=== PATIENT | female | born 1965 | race African-American/Black ===

== ENCOUNTER 2021-03-03 09:33 | Inpatient (IN) | payer OTHER, MEDICAID ==
[~2021-03-03] VITALS: Ht 157.5 cm; Wt 83.2 kg
[2021-03-03] MEDS ORDERED: ACETAMINOPHEN 325MG TABLET PO STA (10:03)
[2021-03-03 10:47] LABS: BASOPHILS % 0.6 % (0.0-2.0); EOSINOPHILS % 0.9 % (0.0-5.0); HEMATOCRIT. 41.5 % (36.0-48.0); HEMOGLOBIN. 14.1 g/dL (12.0-16.0); MEAN CORPUSCULAR HEMOGLOBIN 28.7 pg (28.0-32.0); MEAN CORPUSCULAR VOLUME 84.3 fL (81.0-99.0); MONOCYTES % 8.8 % (2.0-8.0); NEUTROPHILS % 63.7 % (40.0-76.0); PLATELET 402 x1000/uL (130-400); RED BLOOD CELL COUNT 4.92 mill/uL (4.2-5.4); RED CELL DISTRIBUTION WIDTH 13.7 % (11.6-14.6)
[2021-03-03 10:48] LABS: CLARITY URINE CLOUDY (CLEAR); COLOR URINE YELLOW (YELLOW); KETONES URINE NEGATIVE (NEGATIVE); LEUKOCYTE ESTERASE URINE TRACE (NEGATIVE); NITRITE URINE NEGATIVE (NEGATIVE); OCCULT BLOOD URINE NEGATIVE (NEGATIVE); PROTEIN URINE NEGATIVE (NEGATIVE); SPECIFIC GRAVITY URINE 1.016 (1.005-1.030); UROBILINOGEN URINE 0.2 E.U./dL (0.2-1.0)
[2021-03-03 10:54] LABS: CHLORIDE 101 mEq/L (98-107)
[2021-03-03 10:56] LABS: INR 1.1; PROTHROMBIN TIME 11.6 sec (9.6-11.0)
[2021-03-03] MEDS ORDERED: KETOROLAC 60MG/2ML VIAL IM ONE (12:00)
[2021-03-03] MEDS ORDERED: MORPHINE SULFATE 4 MG/ML CPJ (NOT FOR IM USE) IV ONE (14:00)
[2021-03-03 16:00] VITALS: BP 165/62
[2021-03-03] MEDS ORDERED: BENA20TA10 MT (17:04)
[2021-03-03] MEDS ORDERED: LOSA100T32 MT (17:04)
[2021-03-03] MEDS ORDERED: HYDR50TA MT (17:04)
[2021-03-03] MEDS ORDERED: DILT240C92 MT (17:04)
[2021-03-03] MEDS ORDERED: LORAZEPAM 0.5MG TABLET PO PRN (17:30)
[2021-03-03] MEDS ORDERED: HYDROCODONE/ACETAMINOPHEN 5/325MG TABLET PO PRN (17:30)
[2021-03-03] MEDS ORDERED: CLONIDINE 0.1MG TABLET PO PRN (17:30)
[2021-03-03] MEDS ORDERED: ONDANSETRON HCL 4MG/2ML INJ IV PRN (17:30)
[2021-03-03] MEDS ORDERED: IPRATROPIUM/ALBUTEROL 0.5-3(2.5)MG/3ML NEB HHN PRN (17:30)
[2021-03-03] MEDS ORDERED: DOCUSATE SODIUM 100MG CAPSULE PO PRN (17:30)
[2021-03-03] MEDS ORDERED: ACETAMINOPHEN 325MG TABLET PO PRN ×2 (17:30)
[2021-03-03] MEDS ORDERED: MORPHINE SULFATE 2 MG/ML CPJ (NOT FOR IM USE) IV PRN (17:30)
[2021-03-03] MEDS ORDERED: *PATIENT'S OWN MEDICATION STORAGE XX SCH (18:00)
[2021-03-03] MEDS: HYDROCHLOROTHIAZIDE 25MG TABLET PO SCH (18:27)
[2021-03-03] MEDS: LOSARTAN POTASSIUM 100 MG TABLET PO SCH (18:27)
[2021-03-03] MEDS: DILTIAZEM HCL 60MG TABLET PO SCH ×2 (18:27→23:52)
[2021-03-03 18:38] VITALS: BP 165/62
[2021-03-03 20:00] VITALS: BP 189/67
[2021-03-04] VITALS: BP 131/59
[2021-03-04 04:00] VITALS: BP 148/67
[2021-03-04] MEDS: DILTIAZEM HCL 60MG TABLET PO SCH ×2 (05:19→12:00)
[2021-03-04 05:36] LABS: CHLORIDE 102 mEq/L (98-107)
[2021-03-04 05:38] LABS: BASOPHILS % 0.8 % (0.0-2.0); EOSINOPHILS % 1.6 % (0.0-5.0); HEMATOCRIT. 39.3 % (36.0-48.0); HEMOGLOBIN. 13.2 g/dL (12.0-16.0); LYMPHOCYTES % 32.5 % (20.0-50.0); MEAN CORPUSCULAR HEMOGLOBIN 28.3 pg (28.0-32.0); MEAN CORPUSCULAR VOLUME 84.1 fL (81.0-99.0); MEAN PLATELET VOLUME 9.6 fl (7.4-10.4); MONOCYTES % 11.6 % (2.0-8.0); NEUTROPHILS % 53.5 % (40.0-76.0); PLATELET 376 x1000/uL (130-400); RED BLOOD CELL COUNT 4.68 mill/uL (4.2-5.4); RED CELL DISTRIBUTION WIDTH 13.6 % (11.6-14.6)
[2021-03-04 08:00] VITALS: BP 143/54
[2021-03-04 08:24] LABS: *AMPHETAMINES SCREEN URINE NEGATIVE (NEGATIVE); *BARBITURATES SCREEN URINE NEGATIVE (NEGATIVE); *BENZODIAZEPINES SCREEN URINE NEGATIVE (NEGATIVE); *COCAINE SCREEN URINE NEGATIVE (NEGATIVE); CANNABINOID URINE SCREEN PRESUMTIVE POSITIVE (NEGATIVE); METHADONE URINE SCREEN NEGATIVE (NEGATIVE); OPIATES URINE SCREEN NEGATIVE (NEGATIVE); PHENCYCLIDINE URINE SCREEN NEGATIVE (NEGATIVE)
[2021-03-04] MEDS: LOSARTAN POTASSIUM 100 MG TABLET PO SCH (09:52)
[2021-03-04 12:00] VITALS: BP 149/54
[2021-03-04] MEDS: HYDROCHLOROTHIAZIDE 25MG TABLET PO SCH (12:23)
[2021-03-04 13:16] VITALS: BP 149/54
[2021-03-04] MEDS ORDERED: LOSA100T32 MT (13:43)
[2021-03-04] MEDS ORDERED: DILT240C92 MT (13:43)
[2021-03-04] MEDS ORDERED: HYDR-4001 MT (13:43)
[2021-03-04] MEDS ORDERED: HYDR50TA MT (13:43)
== END 2021-03-04 15:00 | disposition home or self-care (01) | DRG 445 ==
LOC: ER 09:52 → ENRESERV 14:59 → 5WST 15:54
PROVIDERS: ADMIT Internal Medicine; ATTEND Internal Medicine
DX: K80.10 Calculus of gallbladder with chronic cholecystitis without obstruction (principal); K86.2 Cyst of pancreas; I10 Essential (primary) hypertension; K76.0 Fatty (change of) liver, not elsewhere classified; F12.90 Cannabis use, unspecified, uncomplicated; Z82.49 Family history of ischemic heart disease and other diseases of the circulatory system; K76.89 Other specified diseases of liver; R82.71 Bacteriuria; Z71.51 Drug abuse counseling and surveillance of drug abuser
CPT/HCPCS: 36415; 74176; 76705; 80048; 80053; 80305; 81003; 85025; 99285; J1885; J2270

== ENCOUNTER 2022-06-02 15:36 | Inpatient (IN) | payer MEDICARE, MEDICAID ==
[~2022-06-02] VITALS: Ht 157.5 cm; Wt 93.0 kg
[~2022-06-02 15:36] MED LIST: DILT240C92 MT; HYDR-4001 MT; HYDR50TA MT; LOSA100T32 MT
[2022-06-02] MEDS ORDERED: ONDANSETRON HCL 4MG/2ML INJ IV STA (16:16)
[2022-06-02] MEDS ORDERED: KETOROLAC 30MG/ML VIAL IV STA (16:16)
[2022-06-02] MEDS ORDERED: SODIUM CHLORIDE 0.9% 1,000 ML IV ONE (16:30)
[2022-06-02 18:09] LABS: BASOPHILS % 0.9 % (0.0-2.0); CHLORIDE 108 mEq/L (98-107); EOSINOPHILS % 0.7 % (0.0-5.0); HEMOGLOBIN. 12.2 g/dL (12.0-16.0); LYMPHOCYTES % 23.9 % (20.0-50.0); MEAN CORPUSCULAR HEMOGLOBIN 26.8 pg (28.0-32.0); MEAN CORPUSCULAR VOLUME 81.5 fL (81.0-99.0); MEAN PLATELET VOLUME 9.7 fl (7.4-10.4); NEUTROPHILS % 66.5 % (40.0-76.0); PLATELET 427 x1000/uL (130-400); RED BLOOD CELL COUNT 4.54 mill/uL (4.2-5.4); RED CELL DISTRIBUTION WIDTH 14.7 % (11.6-14.6)
[2022-06-02 18:12] LABS: D-DIMER 0.27 mg/L FEU (<0.50); INR 1.1; PARTIAL THROMBOPLASTIN TIME 30.5 sec (23.4-31.0); PROTHROMBIN TIME 11.7 sec (9.6-11.0)
[2022-06-02] MEDS ORDERED: ASPIRIN 325MG EC TABLET PO ONE (18:45)
[2022-06-03] VITALS (7 sets, daily range): BP systolic 113–180; BP diastolic 54–68
[2022-06-03] MEDS ORDERED: ACETAMINOPHEN 325MG TABLET PO PRN (01:45)
[2022-06-03] MEDS ORDERED: NITROGLYCERIN 0.4MG TABLET SL SL PRN (01:45)
[2022-06-03] MEDS ORDERED: HYDROCODONE/ACETAMINOPHEN 5/325MG TABLET PO PRN (01:45)
[2022-06-03] MEDS ORDERED: ONDANSETRON HCL 4MG/2ML INJ IV PRN (01:45)
[2022-06-03] MEDS ORDERED: NALOXONE HCL 0.4MG/ML VIAL IV PRN (02:00)
[2022-06-03 06:59] LABS: BASOPHILS % 0.8 % (0.0-2.0); EOSINOPHILS % 1.5 % (0.0-5.0); HEMATOCRIT. 35.1 % (36.0-48.0); HEMOGLOBIN. 11.3 g/dL (12.0-16.0); LYMPHOCYTES % 29.9 % (20.0-50.0); MEAN CORPUSCULAR HEMOGLOBIN 26.6 pg (28.0-32.0); MEAN CORPUSCULAR VOLUME 82.4 fL (81.0-99.0); MONOCYTES % 9.2 % (2.0-8.0); NEUTROPHILS % 58.6 % (40.0-76.0); PLATELET 351 x1000/uL (130-400); RED BLOOD CELL COUNT 4.25 mill/uL (4.2-5.4); RED CELL DISTRIBUTION WIDTH 14.2 % (11.6-14.6)
[2022-06-03 08:17] LABS: CHLORIDE 110 mEq/L (98-107)
[2022-06-03 08:28] LABS: HDL CHOLESTEROL 39 mg/dL (40-59); LDL CHOLESTEROL 137 mg/dL (5-100)
[2022-06-03] MEDS: METOPROLOL SUCCINATE 50MG ER TABLET PO SCH ×2 (08:41→15:21)
[2022-06-03] MEDS ORDERED: ASPIRIN 81MG TABLET PO SCH (09:00)
[2022-06-03] MEDS ORDERED: LOSARTAN POTASSIUM 100 MG TABLET PO SCH (11:45)
[2022-06-03] MEDS ORDERED: LOSA100T32 MT (12:56)
[2022-06-03 14:19] LABS: CLARITY URINE CLEAR (CLEAR); COLOR URINE YELLOW (YELLOW); KETONES URINE TRACE (NEGATIVE); LEUKOCYTE ESTERASE URINE NEGATIVE (NEGATIVE); NITRITE URINE NEGATIVE (NEGATIVE); OCCULT BLOOD URINE NEGATIVE (NEGATIVE); PH URINE 5.5 (4.5-8.0); PROTEIN URINE TRACE (NEGATIVE); SPECIFIC GRAVITY URINE 1.033 (1.005-1.030)
== END 2022-06-03 17:46 | disposition home or self-care (01) | DRG 392 ==
LOC: ER 15:36 → MICUSO 18:46 → EDBEDREQ 18:56 → EDBEDREQTM 18:56 → 6WST 06-03 00:52
PROVIDERS: ADMIT Internal Medicine; ATTEND Internal Medicine
DX: K21.9 Gastro-esophageal reflux disease without esophagitis (principal); I10 Essential (primary) hypertension; D72.829 Elevated white blood cell count, unspecified; E66.9 Obesity, unspecified; R77.8 Other specified abnormalities of plasma proteins; E87.8 Other disorders of electrolyte and fluid balance, not elsewhere classified; Z90.49 Acquired absence of other specified parts of digestive tract; Z82.49 Family history of ischemic heart disease and other diseases of the circulatory system; Z68.37 Body mass index [BMI] 37.0-37.9, adult; Z71.3 Dietary counseling and surveillance
CPT/HCPCS: 36415; 71045; 74176; 80048; 80053; 80061; 81003; 83880; 84484; 85025; 85379; 93005; 93970; 99285; J1885; J2405; J7030

== ENCOUNTER 2022-08-04 07:14 | Emergency (ER) | payer BC, MEDICAID ==
[~2022-08-04] VITALS: Ht 157.5 cm; Wt 91.0 kg
[2022-08-04] MEDS ORDERED: KETOROLAC 60MG/2ML VIAL IM ONE (11:30)
[2022-08-04] MEDS ORDERED: ACETAMINOPHEN 325MG TABLET PO ONE (11:30)
[2022-08-04] MEDS ORDERED: TAM75 MT (14:30)
[2022-08-04] MEDS ORDERED: NAPR-681 MT (14:30)
[2022-08-04] MEDS ORDERED: TOPUD MT (14:30)
[2022-08-04] MEDS ORDERED: LIDO1ADH71 EXT (14:37)
[2022-08-04 14:51] VITALS: BP 146/84
== END 2022-08-04 14:55 | disposition home or self-care (01) ==
LOC: ER 07:14
DX: J11.1 Influenza due to unidentified influenza virus with other respiratory manifestations (principal); M79.18 Myalgia, other site; R07.89 Other chest pain; R05.9 Cough, unspecified; I10 Essential (primary) hypertension; Z98.890 Other specified postprocedural states; Z79.899 Other long term (current) drug therapy; Z20.822 Contact with and (suspected) exposure to COVID-19
CPT/HCPCS: 71046; 87426; 87804; 96372; 99284; C9803; J1885